=== PATIENT | female | born 1950 | race Caucasian/White ===

== ENCOUNTER → 2021-05-30 | Outpatient (CLI) | payer MEDICARE, BC ==
[~2021-05-30] MED LIST: COZAAR100 MG PO; CYCLOBENZAPRINE10 MG PO; DOXYCYCLINE MO100 MG PO; DULCOLAX10 MG PR; ESCITALOPRAM PO; KEFLEX CAP 500500 MG PO; LIPITOR10 MG PO; METOPROLOL SUC100 MG PO; NEURONTIN300 MG PO; NORCO 5-325 TA1 EACH PO; OMEPRAZOLE20 MG PO; SINGULAIR10 MG PO; TRAMADOL HCL100 MG PO; TRAZODONE HCL50 MG PO; VENTOLIN HFA 66.7 GM INH; WELLBUTRIN XL300 MG PO; XYZAL5 MG PO
== END ==
LOC: KOH-I 11:28
DX: M53.3 Sacrococcygeal disorders, not elsewhere classified (principal); M54.5 Low back pain; G89.29 Other chronic pain; S32.2XXA Fracture of coccyx, initial encounter for closed fracture; X58.XXXA Exposure to other specified factors, initial encounter; M47.816 Spondylosis without myelopathy or radiculopathy, lumbar region; M47.817 Spondylosis without myelopathy or radiculopathy, lumbosacral region; M41.9 Scoliosis, unspecified; M46.07 Spinal enthesopathy, lumbosacral region; M46.06 Spinal enthesopathy, lumbar region
CPT/HCPCS: 72100; 72220

== ENCOUNTER → 2021-06-30 | Outpatient (CLI) | payer MEDICARE, BC | LOC: KOH-I 11:09 | DX: M25.551 Pain in right hip (principal); M25.561 Pain in right knee; M17.11 Unilateral primary osteoarthritis, right knee; M16.11 Unilateral primary osteoarthritis, right hip | CPT/HCPCS: 73502; 73560 ==

== ENCOUNTER 2021-12-01 08:31 | Emergency (ER) | payer MEDICARE, BC ==
[~2021-12-01] VITALS: Ht 165.1 cm; Wt 90.7 kg
== END 2021-12-01 12:34 | disposition home or self-care (01) ==
LOC: ER1 08:31
DX: U07.1 COVID-19 (principal); Z23 Encounter for immunization; J44.9 Chronic obstructive pulmonary disease, unspecified; I10 Essential (primary) hypertension; Z90.49 Acquired absence of other specified parts of digestive tract
CPT/HCPCS: 99283; M0245

== ENCOUNTER → 2022-01-29 | Outpatient (CLI) | payer MEDICARE, BC | LOC: HEART 5 07:50 | DX: R07.9 Chest pain, unspecified (principal); R06.02 Shortness of breath; I34.0 Nonrheumatic mitral (valve) insufficiency | CPT/HCPCS: 78452; 93306; A9502; J2785 ==

== ENCOUNTER → 2022-04-24 | Outpatient (CLI) | payer MEDICARE, BC | LOC: KOH-I 04-20 11:00 | DX: R06.02 Shortness of breath (principal); R91.8 Other nonspecific abnormal finding of lung field; E04.2 Nontoxic multinodular goiter | CPT/HCPCS: 71250 ==

== ENCOUNTER → 2022-05-03 | Outpatient (CLI) | payer MEDICARE, BC | LOC: KOH-I 14:49 | DX: E04.1 Nontoxic single thyroid nodule (principal) | CPT/HCPCS: 76536 ==

== ENCOUNTER → 2022-08-02 | Outpatient (CLI) | payer MEDICARE, BC | LOC: KOH-I 07-27 15:15 | DX: M47.26 Other spondylosis with radiculopathy, lumbar region (principal); M51.16 Intervertebral disc disorders with radiculopathy, lumbar region | CPT/HCPCS: 72148 ==